=== PATIENT | male | born 1985 | race Two or more races ===

== ENCOUNTER 2022-11-09 10:23 | Inpatient (IN) | payer MEDICAID, OTHER ==
[~2022-11-09] VITALS: Ht 170.2 cm; Wt 82.1 kg
[2022-11-09] MEDS ORDERED: NITROGLYCERIN 0.4 MG SL TAB SL ONE (10:45)
[2022-11-09] MEDS ORDERED: ASPirin 325 MG TAB PO ONE (10:45)
[2022-11-09 11:15] LABS: Basophils # (auto) 0.1 10 ^3/uL (0-0.2); Basophils % (auto) 0.5 % (0.0-2.0); Eosinophils # (auto) 0 10 ^3/uL (0-0.8); Hemoglobin 16.6 g/dL (13.5-17.5); Lymphocytes # (auto) 1.3 10 ^3/uL (0.4-5.4); Lymphocytes % (auto) 9.4 % (10.0-50.0); Mean Corpuscular Hemoglobin 30.7 pg (28.0-32.0); Mean Corpuscular Hgb Conc. 34.7 g/dL (32.0-36.0); Mean Corpuscular Volume 88.6 fL (80.0-100.0); Monocytes # (auto) 0.8 10 ^3/uL (0-1.3); Neutrophils # (auto) 11.6 10 ^3/uL (1.6-8.6); Neutrophils % (auto) 84.1 % (37.0-80.0); Nucleated Red Blood Cells % 0.9 %; Red Blood Cells 5.41 10^6/uL (4.5-5.90); Red Cell Distribution Width 12.3 % (11.8-14.3); White Blood Cell 13.7 10^3/uL (4.4-10.8)
[2022-11-09 11:30] LABS: Albumin 4.3 g/dL (3.4-5.0); Calcium 8.6 mg/dL (8.5-10.1); Potassium 3.7 mmol/L (3.5-5.1)
[2022-11-09 11:33] LABS: BUN/Creatinine Ratio 10.2; Bilirubin, Total 1.1 mg/dL (0.2-1.0); Total Protein 7.9 g/dL (6.4-8.2)
[2022-11-09] MEDS ORDERED: metroNIDAZOLE 500MG/100ML 100 ML IV ONE (14:00)
[2022-11-09] MEDS ORDERED: cefTRIAXone 1GM/50ML D5W 50 ML IV ONE (14:00)
[2022-11-09] MEDS ORDERED: MORPHINE SULFATE 4 MG/ML SYR/VIAL IV ONE (14:00)
[2022-11-09] MEDS ORDERED: ENOXAPARIN SOD 100 MG/1 ML SYRINGE SC ONE (14:00)
[2022-11-09] MEDS ORDERED: ONDANSETRON HCL 4 MG/2 ML VIAL IV ONE (14:00)
[2022-11-09] MEDS ORDERED: NITROGLYCERIN 0.4MG/HR TOPICAL PATCH TD ONE (15:30)
[2022-11-09] MEDS ORDERED: hydrALAZINE HCL 20 MG/ML VL IV PRN (15:30)
[2022-11-09] MEDS ORDERED: SODIUM CHLORIDE 0.9% 1,000 ML IV SCH (15:30)
[2022-11-09] MEDS ORDERED: THIAMINE HCL 100 MG TAB PO ONE (15:45)
[2022-11-09] MEDS: LACTATED RINGER'S 1,000 ML IV SCH ×2 (16:31→20:27)
[2022-11-09] MEDS: HYDROmorphone HCL 2 MG/ML VL/or syr IV PRN ×2 (16:31→20:55)
[2022-11-09 16:47] LABS: INR 1.03 (0.9-1.15); Partial Thromboplastin Time 29.6 sec (24.6-33.4)
[2022-11-09 16:50] LABS: Bilirubin, Direct 0.2 mg/dL (0-0.2); Cholesterol 174 mg/dL (< 200)
[2022-11-09 16:52] LABS: Bilirubin, Total 1.3 mg/dL (0.2-1.0); HDL Cholesterol 40 mg/dL (40-59); Triglycerides 744 mg/dL (< 150)
[2022-11-09] MEDS ORDERED: ATORVASTATIN 20 MG TAB PO SCH (22:00)
[2022-11-09] MEDS: metroNIDAZOLE 500MG/100ML 100 ML IV SCH (22:15)
[2022-11-09] MEDS: PANTOPRAZOLE 40 MG/10 ML VIAL INJ IV SCH (22:15)
[2022-11-10] MEDS: LACTATED RINGER'S 1,000 ML IV SCH ×5 (00:29→16:15)
[2022-11-10] MEDS: LORazepam 2MG/ML-1ML VIAL IV PRN ×3 (00:55→20:18)
[2022-11-10] MEDS ORDERED: LORazepam 2MG/ML-1ML VIAL IV ONE (02:30)
[2022-11-10] MEDS: chlordiazePOXIDE HCL 25 MG CAP PO SCH ×3 (03:58→20:38)
[2022-11-10] MEDS: HYDROmorphone HCL 2 MG/ML VL/or syr IV PRN ×5 (04:00→20:25)
[2022-11-10] MEDS: metroNIDAZOLE 500MG/100ML 100 ML IV SCH (06:26)
[2022-11-10] MEDS ORDERED: SODIUM CHLORIDE 0.9% 2,000 ML IV ONE (06:45)
[2022-11-10 07:07] LABS: Basophils # (auto) 0.1 10 ^3/uL (0-0.2); Eosinophils # (auto) 0 10 ^3/uL (0-0.8)
[2022-11-10 07:08] LABS: Basophils % (auto) 0.3 % (0.0-2.0); Hematocrit 51.8 % (41.0-53.0); Lymphocytes # (auto) 0.5 10 ^3/uL (0.4-5.4); Lymphocytes % (auto) 3.4 % (10.0-50.0); Mean Corpuscular Hemoglobin 31.4 pg (28.0-32.0); Mean Corpuscular Hgb Conc. 34.8 g/dL (32.0-36.0); Mean Corpuscular Volume 90.4 fL (80.0-100.0); Monocytes % (auto) 6.1 % (0.0-12.0); Neutrophils # (auto) 14.6 10 ^3/uL (1.6-8.6); Neutrophils % (auto) 90.2 % (37.0-80.0); Nucleated Red Blood Cells % 0.5 %; Red Blood Cells 5.73 10^6/uL (4.5-5.90); White Blood Cell 16.2 10^3/uL (4.4-10.8)
[2022-11-10 07:25] LABS: BUN/Creatinine Ratio 18.8; Potassium 5.1 mmol/L (3.5-5.1)
[2022-11-10 07:26] LABS: Albumin 3.2 g/dL (3.4-5.0); Bilirubin, Total 2.9 mg/dL (0.2-1.0); Total Protein 6.3 g/dL (6.4-8.2)
[2022-11-10 08:50] LABS: Amylase 433 U/L (25-115)
[2022-11-10] MEDS ORDERED: cefTRIAXone 1GM/50ML D5W 50 ML IV SCH (09:00)
[2022-11-10 09:02] LABS: Lipase 5558 U/L (73-393)
[2022-11-10] MEDS: PANTOPRAZOLE 40 MG/10 ML VIAL INJ IV SCH ×2 (09:09→22:27)
[2022-11-10] MEDS: MEROPENEM 1GM IVPB 100 ML IV SCH ×2 (09:09→17:26)
[2022-11-10] MEDS: THIAMINE HCL 100 MG TAB PO SCH (09:10)
[2022-11-10] MEDS ORDERED: LISINOPRIL 10 MG TAB PO SCH (10:00)
[2022-11-10] MEDS ORDERED: ASPirin 81 mg TAB PO SCH (10:00)
[2022-11-10 11:15] LABS: Urine Bacteria NONE SEEN /hpf (None Seen); Urine Blood 3+ /uL (Negative); Urine Hyaline Cast MOD /lpf (0 - 2); Urine Mucus FEW (None Seen); Urine Specific Gravity 1.036 (1.001-1.035); Urine WBC 1 /hpf (0 - 3)
[2022-11-10 11:28] LABS: Alcohol, Urine < 3.0 mg/dL (0-10); Amphetamine Screen, Urine NEGATIVE (NEGATIVE); Barbiturate Scree,Urine NEGATIVE (NEGATIVE); Benzodiazephine Screen, Urine POSITIVE (NEGATIVE); Cannabinoid Screen, Urine NEGATIVE (NEGATIVE); Cocaine Screen, Urine POSITIVE (NEGATIVE); Opiate Scree,Urine POSITIVE (NEGATIVE); Phencyclidine Screen, Urine NEGATIVE (NEGATIVE)
[2022-11-10 18:09] LABS: Albumin 2.9 g/dL (3.4-5.0); Potassium 5.4 mmol/L (3.5-5.1)
[2022-11-10 18:12] LABS: Lactic Acid w/Reflex 3.5 mmol/L (0.4-2.0)
[2022-11-10 18:13] LABS: BUN/Creatinine Ratio 14.3; Bilirubin, Total 2.7 mg/dL (0.2-1.0); Total Protein 5.6 g/dL (6.4-8.2)
[2022-11-10 18:22] LABS: Calcium 5.8 mg/dL (8.5-10.1)
[2022-11-10] MEDS ORDERED: OMNIPAQUE ORAL SOLN 500ml 12mg/ml PO ONE (18:46)
[2022-11-10] MEDS ORDERED: IOHEXOL 350 MG/ML 100ML IJ ONE (18:46)
[2022-11-10] MEDS ORDERED: CALCIUM GLUC 1,000mg/50ml-NS 50 ML IV STA (19:42)
[2022-11-10] MEDS ORDERED: SODIUM CHLORIDE 0.9% 1,000 ML IV ONE (19:45)
[2022-11-10] MEDS ORDERED: chlordiazePOXIDE HCL 5 MG CAP ONE (20:31)
[2022-11-10 20:37] LABS: Basophils # (auto) 0 10 ^3/uL (0-0.2); Basophils % (auto) 0.1 % (0.0-2.0); Eosinophils # (auto) 0 10 ^3/uL (0-0.8); Hematocrit 46.9 % (41.0-53.0); Hemoglobin 15.9 g/dL (13.5-17.5); Lymphocytes # (auto) 0.8 10 ^3/uL (0.4-5.4); Lymphocytes % (auto) 6.1 % (10.0-50.0); Mean Corpuscular Hemoglobin 30.8 pg (28.0-32.0); Mean Corpuscular Hgb Conc. 33.9 g/dL (32.0-36.0); Mean Corpuscular Volume 90.8 fL (80.0-100.0); Monocytes # (auto) 0.9 10 ^3/uL (0-1.3); Monocytes % (auto) 6.7 % (0.0-12.0); Neutrophils # (auto) 12.1 10 ^3/uL (1.6-8.6); Neutrophils % (auto) 87.1 % (37.0-80.0); Red Blood Cells 5.16 10^6/uL (4.5-5.90); Red Cell Distribution Width 13.1 % (11.8-14.3); White Blood Cell 13.9 10^3/uL (4.4-10.8)
[2022-11-10 22:43] LABS: INR 1.03 (0.9-1.15)
[2022-11-11] VITALS (73 sets, daily range): BP systolic 82–139; BP diastolic 51–96
[2022-11-11] MEDS: ACETAMINOPHEN 325 MG TAB PO PRN ×2 (00:06→00:08)
[2022-11-11] MEDS: HYDROmorphone HCL 2 MG/ML VL/or syr IV PRN ×4 (01:25→16:13)
[2022-11-11] MEDS: SODIUM CHLORIDE 0.9% 1,000 ML IV SCH ×6 (01:28→22:45)
[2022-11-11] MEDS: MEROPENEM 1GM IVPB 100 ML IV SCH ×3 (02:07→18:43)
[2022-11-11 05:50] LABS: Albumin 2.7 g/dL (3.4-5.0); Basophils # (auto) 0 10 ^3/uL (0-0.2); Basophils % (auto) 0.1 % (0.0-2.0); Eosinophils # (auto) 0 10 ^3/uL (0-0.8); Hematocrit 44.3 % (41.0-53.0); Hemoglobin 15.2 g/dL (13.5-17.5); Lymphocytes # (auto) 1.1 10 ^3/uL (0.4-5.4); Lymphocytes % (auto) 9.6 % (10.0-50.0); Magnesium 1.9 mg/dL (1.6-2.6); Mean Corpuscular Hemoglobin 31.2 pg (28.0-32.0); Mean Corpuscular Hgb Conc. 34.3 g/dL (32.0-36.0); Mean Corpuscular Volume 91.2 fL (80.0-100.0); Monocytes # (auto) 0.8 10 ^3/uL (0-1.3); Monocytes % (auto) 6.9 % (0.0-12.0); Neutrophils # (auto) 9.9 10 ^3/uL (1.6-8.6); Neutrophils % (auto) 83.4 % (37.0-80.0); Red Blood Cells 4.86 10^6/uL (4.5-5.90); White Blood Cell 11.9 10^3/uL (4.4-10.8)
[2022-11-11 05:58] LABS: BUN/Creatinine Ratio 12.7; Bilirubin, Total 2.6 mg/dL (0.2-1.0); Phosphorus 2.2 mg/dL (2.5-4.90); Total Protein 6.2 g/dL (6.4-8.2)
[2022-11-11 06:19] LABS: Calcium 5.8 mg/dL (8.5-10.1); Potassium 5.6 mmol/L (3.5-5.1)
[2022-11-11] MEDS ORDERED: SODIUM ZIRCONIUM CYCL 10 GM PAK PO ONE (06:45)
[2022-11-11] MEDS: SODIUM BICARBONATE 50ML VIAL 50 ML in SOD CHL 0.45% 1,000 ML IV SCH ×2 (10:39→21:23)
[2022-11-11] MEDS: chlordiazePOXIDE HCL 25 MG CAP PO SCH ×2 (10:41→22:00)
[2022-11-11] MEDS: THIAMINE HCL 100 MG TAB PO SCH (10:42)
[2022-11-11] MEDS: PANTOPRAZOLE 40 MG/10 ML VIAL INJ IV SCH ×2 (10:44→21:57)
[2022-11-11] MEDS: CALCIUM GLUC 1,000mg/50ml-NS 50 ML IV SCH ×3 (10:53→12:08)
[2022-11-11 10:55] LABS: Sodium Urine < 5 mmol/L (40-220)
[2022-11-11 11:04] LABS: Protein, Urine 381.1 mg/dL (0.0-11.9)
[2022-11-11 11:18] LABS: Creatinine, Urine 349 mg/dL (30.0-125.0)
[2022-11-11] MEDS: ALBUMIN 25% 100 ML IV SCH ×2 (11:30→18:44)
[2022-11-11] MEDS ORDERED: SODIUM PHOSPHATES 24 MEQ in SODIUM CHL 0.9% 100 ML IV ONE (12:15)
[2022-11-11] MEDS ORDERED: LIDOCAINE 1% (LOCAL ANESTH.) PF 5ml SDV ID ONE (13:30)
[2022-11-11] MEDS ORDERED: TPN PER PHARMACY 0 ML IV SCH (16:30)
[2022-11-11] MEDS ORDERED: ROCURONIUM 10MG/ML 10ML VIAL IV ONE (17:04)
[2022-11-11] MEDS ORDERED: ETOMIDATE (2MG/ML) 20ML VIAL IV ONE (17:04)
[2022-11-11] MEDS ORDERED: MIDAZOLAM DRIP 50 mg/50mL 50 ML IV ONE (17:19)
[2022-11-11] MEDS ORDERED: fentaNYL Drip 2500mCg/250mlNS 250 ML IV ONE (17:21)
[2022-11-11] MEDS: fentaNYL Drip 2500mCg/250mlNS 250 ML IV SCH (17:31)
[2022-11-11] MEDS: MIDAZOLAM DRIP 50 mg/50mL 50 ML IV SCH ×3 (17:32→23:01)
[2022-11-11 18:28] LABS: Basophils # (auto) 0 10 ^3/uL (0-0.2); Basophils % (auto) 0.3 % (0.0-2.0); Eosinophils # (auto) 0 10 ^3/uL (0-0.8); Eosinophils % (auto) 0.1 % (0.0-7.0); Hemoglobin 12.5 g/dL (13.5-17.5); Lymphocytes # (auto) 0.7 10 ^3/uL (0.4-5.4); Lymphocytes % (auto) 9.6 % (10.0-50.0); Mean Corpuscular Hgb Conc. 34.6 g/dL (32.0-36.0); Mean Corpuscular Volume 92.3 fL (80.0-100.0); Monocytes # (auto) 0.5 10 ^3/uL (0-1.3); Monocytes % (auto) 6.8 % (0.0-12.0); Neutrophils # (auto) 6.4 10 ^3/uL (1.6-8.6); Neutrophils % (auto) 83.2 % (37.0-80.0); Nucleated Red Blood Cells % 0.1 %; Red Cell Distribution Width 13.1 % (11.8-14.3); White Blood Cell 7.6 10^3/uL (4.4-10.8)
[2022-11-11 18:42] LABS: Albumin 2.7 g/dL (3.4-5.0); Magnesium 2.1 mg/dL (1.6-2.6); Potassium 4.1 mmol/L (3.5-5.1)
[2022-11-11 18:45] LABS: BUN/Creatinine Ratio 14.2; Bilirubin, Total 2.2 mg/dL (0.2-1.0)
[2022-11-11 18:56] LABS: Calcium 5.6 mg/dL (8.5-10.1)
[2022-11-11] MEDS ORDERED: DEXTROSE (50%) 50ML SYRG IV SCH (20:00)
[2022-11-11] MEDS ORDERED: CLINIMIX PER PHARMACY IV NR (20:00)
[2022-11-11] MEDS: SODIUM CHLOR 0.9% PF (SALINE LOCK) 10ML VIAL/SYR IV SCH (21:57)
[2022-11-11] MEDS: ACETAMINOPHEN 650 MG RECT SUPP PR PRN (22:45)
[2022-11-11] MEDS: ACCU-CHEK COMFORT CURVE STRIP VI SCH (23:56)
[2022-11-12] VITALS (98 sets, daily range): BP systolic 89–129; BP diastolic 45–88
[2022-11-12] MEDS: InsuLIN REG 1unit/0.01ml Soln (100units/ml) SC SCH ×4 (00:01→18:00)
[2022-11-12] MEDS: ALBUMIN 25% 100 ML IV SCH (01:52)
[2022-11-12] MEDS: MEROPENEM 1GM IVPB 100 ML IV SCH ×3 (02:19→18:13)
[2022-11-12] MEDS: MIDAZOLAM DRIP 50 mg/50mL 50 ML IV SCH ×6 (02:28→21:01)
[2022-11-12] MEDS: PROPOFOL 100 ML IV SCH ×2 (03:40→16:30)
[2022-11-12] MEDS: SODIUM CHLORIDE 0.9% 1,000 ML IV SCH (03:45)
[2022-11-12 04:21] LABS: Albumin 3.3 g/dL (3.4-5.0)
[2022-11-12 04:25] LABS: Bilirubin, Total 2.4 mg/dL (0.2-1.0); Phosphorus 3.4 mg/dL (2.5-4.90); Total Protein 6.1 g/dL (6.4-8.2)
[2022-11-12 04:29] LABS: BUN/Creatinine Ratio 12.5
[2022-11-12 04:30] LABS: Calcium 5.1 mg/dL (8.5-10.1)
[2022-11-12] MEDS: fentaNYL Drip 2500mCg/250mlNS 250 ML IV SCH ×2 (05:23→17:21)
[2022-11-12] MEDS: ACCU-CHEK COMFORT CURVE STRIP VI SCH ×3 (05:31→18:16)
[2022-11-12] MEDS: SODIUM BICARBONATE 50ML VIAL 50 ML in SOD CHL 0.45% 1,000 ML IV SCH ×2 (08:16→17:40)
[2022-11-12] MEDS: CALCIUM GLUC 1,000mg/50ml-NS 50 ML IV SCH ×5 (08:21→13:04)
[2022-11-12] MEDS: chlordiazePOXIDE HCL 25 MG CAP PO SCH ×2 (10:00→22:00)
[2022-11-12] MEDS: THIAMINE HCL 100 MG TAB PO SCH (10:00)
[2022-11-12] MEDS: PANTOPRAZOLE 40 MG/10 ML VIAL INJ IV SCH ×2 (10:03→22:22)
[2022-11-12] MEDS: SODIUM CHLOR 0.9% PF (SALINE LOCK) 10ML VIAL/SYR IV SCH ×2 (10:04→22:23)
[2022-11-12] MEDS: ACETAMINOPHEN 650 MG RECT SUPP PR PRN ×2 (10:15→20:08)
[2022-11-12] MEDS ORDERED: SODIUM CHL 0.9% 1000 ML BAG XX ONE (10:30)
[2022-11-12 13:48] LABS: Hepatitis C Antibody Negative (Negative)
[2022-11-12] MEDS: NOREPINEPHRINE 8 MG/250ML KIT 250 ML IV SCH (13:53)
[2022-11-12] MEDS: ALBUMIN 25% 100 ML IV PRN ×2 (14:00→14:50)
[2022-11-12] MEDS ORDERED: TPN PER PHARMACY IV NR ×7 (20:00)
[2022-11-13] VITALS (106 sets, daily range): BP systolic 86–122; BP diastolic 40–78
[2022-11-13] MEDS: ACCU-CHEK COMFORT CURVE STRIP VI SCH ×4 (00:25→17:48)
[2022-11-13] MEDS: InsuLIN REG 1unit/0.01ml Soln (100units/ml) SC SCH ×4 (00:31→18:06)
[2022-11-13] MEDS: MIDAZOLAM DRIP 50 mg/50mL 50 ML IV SCH ×4 (00:37→20:45)
[2022-11-13] MEDS: PROPOFOL 100 ML IV SCH ×5 (00:38→20:45)
[2022-11-13] MEDS: MEROPENEM 1GM IVPB 100 ML IV SCH ×3 (02:06→17:48)
[2022-11-13 04:10] LABS: Basophils # (auto) 0 10 ^3/uL (0-0.2); Basophils % (auto) 0.3 % (0.0-2.0); Eosinophils # (auto) 0 10 ^3/uL (0-0.8); Eosinophils % (auto) 0.8 % (0.0-7.0); Hematocrit 29.3 % (41.0-53.0); Hemoglobin 9.9 g/dL (13.5-17.5); Lymphocytes # (auto) 0.6 10 ^3/uL (0.4-5.4); Lymphocytes % (auto) 11.8 % (10.0-50.0); Mean Corpuscular Hemoglobin 31.2 pg (28.0-32.0); Mean Corpuscular Hgb Conc. 33.8 g/dL (32.0-36.0); Mean Corpuscular Volume 92.2 fL (80.0-100.0); Monocytes # (auto) 0.6 10 ^3/uL (0-1.3); Monocytes % (auto) 10.9 % (0.0-12.0); Neutrophils # (auto) 4.1 10 ^3/uL (1.6-8.6); Neutrophils % (auto) 76.2 % (37.0-80.0); Nucleated Red Blood Cells % 0.1 %; Red Blood Cells 3.18 10^6/uL (4.5-5.90); Red Cell Distribution Width 13.2 % (11.8-14.3); White Blood Cell 5.4 10^3/uL (4.4-10.8)
[2022-11-13] MEDS: SODIUM BICARBONATE 50ML VIAL 50 ML in SOD CHL 0.45% 1,000 ML IV SCH ×2 (04:13→15:16)
[2022-11-13 04:21] LABS: Albumin 2.9 g/dL (3.4-5.0); Magnesium 1.9 mg/dL (1.6-2.6); Potassium 3.6 mmol/L (3.5-5.1)
[2022-11-13 04:25] LABS: Phosphorus 3.8 mg/dL (2.5-4.90); Total Protein 5.2 g/dL (6.4-8.2)
[2022-11-13] MEDS: fentaNYL Drip 2500mCg/250mlNS 250 ML IV SCH ×2 (05:51→18:00)
[2022-11-13] MEDS ORDERED: chlordiazePOXIDE HCL 25 MG CAP PO SCH (07:00)
[2022-11-13] MEDS: THIAMINE HCL 100 MG TAB PO SCH (10:10)
[2022-11-13] MEDS: SODIUM CHLOR 0.9% PF (SALINE LOCK) 10ML VIAL/SYR IV SCH ×2 (10:10→22:05)
[2022-11-13] MEDS: PANTOPRAZOLE 40 MG/10 ML VIAL INJ IV SCH ×2 (10:10→22:25)
[2022-11-13] MEDS: NOREPINEPHRINE 8 MG/250ML KIT 250 ML IV SCH ×2 (13:30→14:00)
[2022-11-13] MEDS ORDERED: TPN PER PHARMACY IV NR ×7 (20:00)
[2022-11-13] MEDS ORDERED: BUMETANIDE 2.5mg/10ml (0.25 mg/ml) INJ IV ONE (20:15)
[2022-11-13] MEDS: ACETAMINOPHEN 650 MG RECT SUPP PR PRN (22:26)
[2022-11-14] VITALS (102 sets, daily range): BP systolic 89–125; BP diastolic 40–80
[2022-11-14] MEDS: InsuLIN REG 1unit/0.01ml Soln (100units/ml) SC SCH ×4 (00:06→18:14)
[2022-11-14] MEDS: ACCU-CHEK COMFORT CURVE STRIP VI SCH ×4 (00:06→18:13)
[2022-11-14] MEDS: SODIUM BICARBONATE 50ML VIAL 50 ML in SOD CHL 0.45% 1,000 ML IV SCH (00:45)
[2022-11-14] MEDS: MEROPENEM 1GM IVPB 100 ML IV SCH ×2 (01:31→09:43)
[2022-11-14] MEDS: PROPOFOL 100 ML IV SCH ×5 (04:00→23:48)
[2022-11-14 04:21] LABS: Basophils # (auto) 0.1 10 ^3/uL (0-0.2); Eosinophils # (auto) 0.1 10 ^3/uL (0-0.8); Eosinophils % (auto) 1.9 % (0.0-7.0); Hematocrit 27.3 % (41.0-53.0); Hemoglobin 9.5 g/dL (13.5-17.5); Lymphocytes # (auto) 0.6 10 ^3/uL (0.4-5.4); Mean Corpuscular Hemoglobin 31.9 pg (28.0-32.0); Mean Corpuscular Hgb Conc. 34.7 g/dL (32.0-36.0); Mean Corpuscular Volume 92.1 fL (80.0-100.0); Monocytes # (auto) 0.7 10 ^3/uL (0-1.3); Monocytes % (auto) 13.5 % (0.0-12.0); Neutrophils # (auto) 4.1 10 ^3/uL (1.6-8.6); Neutrophils % (auto) 73.6 % (37.0-80.0); Nucleated Red Blood Cells % 0.1 %; Red Blood Cells 2.96 10^6/uL (4.5-5.90); Red Cell Distribution Width 13.5 % (11.8-14.3); White Blood Cell 5.5 10^3/uL (4.4-10.8)
[2022-11-14 04:32] LABS: Albumin 2.2 g/dL (3.4-5.0); BUN/Creatinine Ratio 9.6; Magnesium 2.1 mg/dL (1.6-2.6); Phosphorus 5.1 mg/dL (2.5-4.90); Potassium 3.8 mmol/L (3.5-5.1)
[2022-11-14 04:35] LABS: Bilirubin, Total 2.1 mg/dL (0.2-1.0); Total Protein 4.6 g/dL (6.4-8.2)
[2022-11-14] MEDS: MIDAZOLAM DRIP 50 mg/50mL 50 ML IV SCH ×5 (05:00→21:27)
[2022-11-14 05:02] LABS: Calcium 5.8 mg/dL (8.5-10.1)
[2022-11-14] MEDS: CALCIUM GLUC 1,000mg/50ml-NS 50 ML IV PRN ×2 (05:15→05:45)
[2022-11-14] MEDS: fentaNYL Drip 2500mCg/250mlNS 250 ML IV SCH (05:25)
[2022-11-14] MEDS: THIAMINE HCL 100 MG TAB PO SCH (09:42)
[2022-11-14] MEDS: SODIUM CHLOR 0.9% PF (SALINE LOCK) 10ML VIAL/SYR IV SCH ×2 (09:42→22:25)
[2022-11-14] MEDS: PANTOPRAZOLE 40 MG/10 ML VIAL INJ IV SCH ×2 (09:42→22:23)
[2022-11-14] MEDS ORDERED: ENOXAPARIN SOD 30 MG/0.3 ML SYRINGE SC ONE (12:15)
[2022-11-14] MEDS ORDERED: BUMETANIDE 2.5mg/10ml (0.25 mg/ml) INJ IV ONE (14:30)
[2022-11-14] MEDS: BUMETANIDE INJECTION 25 MG in GIVE UN-DILUTED 0 ML IV SCH (16:56)
[2022-11-14] MEDS ORDERED: OPTISON 3ml Vial for INJ IV ONE (19:52)
[2022-11-14] MEDS ORDERED: TPN PER PHARMACY IV NR ×7 (20:00)
[2022-11-14] MEDS: MEROPENEM 500MG IVPB 50 ML IV SCH (22:24)
[2022-11-15] VITALS (106 sets, daily range): BP systolic 92–140; BP diastolic 46–95
[2022-11-15] MEDS: InsuLIN REG 1unit/0.01ml Soln (100units/ml) SC SCH ×5 (00:31→23:57)
[2022-11-15] MEDS: MIDAZOLAM DRIP 50 mg/50mL 50 ML IV SCH ×3 (02:33→21:00)
[2022-11-15] MEDS: PROPOFOL 100 ML IV SCH ×4 (04:57→20:00)
[2022-11-15 05:01] LABS: Basophils # (auto) 0 10 ^3/uL (0-0.2); Basophils % (auto) 0.5 % (0.0-2.0); Eosinophils # (auto) 0.2 10 ^3/uL (0-0.8); Eosinophils % (auto) 1.8 % (0.0-7.0); Hematocrit 26.2 % (41.0-53.0); Hemoglobin 9.2 g/dL (13.5-17.5); Lymphocytes # (auto) 0.6 10 ^3/uL (0.4-5.4); Lymphocytes % (auto) 7.4 % (10.0-50.0); Mean Corpuscular Hemoglobin 32.3 pg (28.0-32.0); Mean Corpuscular Hgb Conc. 35.1 g/dL (32.0-36.0); Mean Corpuscular Volume 92.2 fL (80.0-100.0); Monocytes % (auto) 11.7 % (0.0-12.0); Neutrophils # (auto) 6.7 10 ^3/uL (1.6-8.6); Neutrophils % (auto) 78.6 % (37.0-80.0); Nucleated Red Blood Cells % 0.1 %; Red Blood Cells 2.85 10^6/uL (4.5-5.90); Red Cell Distribution Width 13.4 % (11.8-14.3); White Blood Cell 8.5 10^3/uL (4.4-10.8)
[2022-11-15] MEDS: fentaNYL Drip 2500mCg/250mlNS 250 ML IV SCH ×2 (05:01→16:21)
[2022-11-15 05:15] LABS: Albumin 1.8 g/dL (3.4-5.0); Anion Gap 15 (5-15); BUN/Creatinine Ratio 9.4; Calcium 6.5 mg/dL (8.5-10.1); Carbon Dioxide 23 mmol/L (21-32); Chloride 96 mmol/L (98-107); GFR African American 9 mL/min; GFR Non-African American 7 mL/min; Glucose 139 mg/dL (74-106); Magnesium 2.1 mg/dL (1.6-2.6); Potassium 3.9 mmol/L (3.5-5.1); Sodium 134 mmol/L (136-145)
[2022-11-15 05:18] LABS: Alanine Aminotransferase 8 U/L (16-61); Alkaline Phosphatase 80 U/L (45-117); Aspartate Aminotransferase 22 U/L (15-37); Bilirubin, Total 1.9 mg/dL (0.2-1.0); Phosphorus 5.8 mg/dL (2.5-4.90); Total Protein 4.8 g/dL (6.4-8.2)
[2022-11-15 05:26] LABS: Blood Urea Nitrogen 82 mg/dL (7-18)
[2022-11-15] MEDS: ACCU-CHEK COMFORT CURVE STRIP VI SCH ×5 (06:24→23:56)
[2022-11-15] MEDS: PANTOPRAZOLE 40 MG/10 ML VIAL INJ IV SCH ×2 (09:39→21:30)
[2022-11-15] MEDS: THIAMINE 100mg/ml INJ (200mg/2ml VIAL) IV SCH (09:40)
[2022-11-15] MEDS: SODIUM CHLOR 0.9% PF (SALINE LOCK) 10ML VIAL/SYR IV SCH ×2 (09:40→21:29)
[2022-11-15] MEDS: ENOXAPARIN SOD 30 MG/0.3 ML SYRINGE SC SCH (09:40)
[2022-11-15] MEDS: MEROPENEM 500MG IVPB 50 ML IV SCH ×2 (09:40→21:33)
[2022-11-15] MEDS: NOREPINEPHRINE 8 MG/250ML KIT 250 ML IV SCH (10:17)
[2022-11-15] MEDS ORDERED: CALCIUM GLUC 1,000mg/50ml-NS 50 ML IV ONE (10:30)
[2022-11-15] MEDS: ALBUMIN 25% 100 ML IV PRN (10:45)
[2022-11-15] MEDS: BUMETANIDE INJECTION 25 MG in GIVE UN-DILUTED 0 ML IV SCH (18:25)
[2022-11-15] MEDS: ACETAMINOPHEN 650 MG RECT SUPP PR PRN (18:53)
[2022-11-15] MEDS ORDERED: TPN PER PHARMACY IV NR ×7 (20:00)
[2022-11-16] VITALS (91 sets, daily range): BP systolic 102–149; BP diastolic 62–104
[2022-11-16] MEDS: PROPOFOL 100 ML IV SCH ×5 (00:53→17:54)
[2022-11-16] MEDS: MIDAZOLAM DRIP 50 mg/50mL 50 ML IV SCH ×6 (01:02→22:36)
[2022-11-16] MEDS: ACETAMINOPHEN 650 MG RECT SUPP PR PRN ×3 (02:56→17:07)
[2022-11-16 04:15] LABS: Albumin 2.2 g/dL (3.4-5.0); Calcium 7.6 mg/dL (8.5-10.1); Potassium 3.4 mmol/L (3.5-5.1)
[2022-11-16 04:19] LABS: BUN/Creatinine Ratio 11.3; Magnesium 2.3 mg/dL (1.6-2.6)
[2022-11-16 04:21] LABS: Bilirubin, Total 1.6 mg/dL (0.2-1.0); Phosphorus 5.6 mg/dL (2.5-4.90); Total Protein 5.7 g/dL (6.4-8.2)
[2022-11-16 04:29] LABS: Hematocrit 25.6 % (41.0-53.0); Hemoglobin 8.9 g/dL (13.5-17.5); Mean Corpuscular Hemoglobin 31.5 pg (28.0-32.0); Mean Corpuscular Hgb Conc. 34.7 g/dL (32.0-36.0); Mean Corpuscular Volume 90.7 fL (80.0-100.0); Red Blood Cells 2.82 10^6/uL (4.5-5.90); White Blood Cell 11.2 10^3/uL (4.4-10.8)
[2022-11-16 04:31] LABS: Basophils % (manual) 0 (0.0-2.0); Blast Cells 0; Eosinophils % (manual) 0 (0-7); Metamyelocytes % 0; Myelocytes % 0; Promyelocytes % 0; Reactive Lymphocytes 0
[2022-11-16 04:43] LABS: INR 1.03 (0.9-1.15)
[2022-11-16] MEDS: fentaNYL Drip 2500mCg/250mlNS 250 ML IV SCH ×2 (05:28→16:39)
[2022-11-16] MEDS: ACCU-CHEK COMFORT CURVE STRIP VI SCH ×3 (06:01→17:53)
[2022-11-16] MEDS: InsuLIN REG 1unit/0.01ml Soln (100units/ml) SC SCH ×3 (06:06→17:58)
[2022-11-16 07:47] LABS: Band Neutrophils % (manual) 74; Lymphocytes % (manual) 6 (10.0-50.0); Monocytes % (manual) 8 (0-12)
[2022-11-16] MEDS: MEROPENEM 500MG IVPB 50 ML IV SCH ×2 (09:56→22:13)
[2022-11-16] MEDS: THIAMINE 100mg/ml INJ (200mg/2ml VIAL) IV SCH (09:58)
[2022-11-16] MEDS: PANTOPRAZOLE 40 MG/10 ML VIAL INJ IV SCH ×2 (09:59→22:16)
[2022-11-16] MEDS: ENOXAPARIN SOD 30 MG/0.3 ML SYRINGE SC SCH ×2 (09:59→10:00)
[2022-11-16] MEDS: SODIUM CHLOR 0.9% PF (SALINE LOCK) 10ML VIAL/SYR IV SCH ×2 (09:59→22:00)
[2022-11-16] MEDS: POTASSIUM CHL 20MEQ/100ML 100 ML IV SCH ×2 (12:39→15:17)
[2022-11-16] MEDS: NOREPINEPHRINE 8 MG/250ML KIT 250 ML IV SCH (13:15)
[2022-11-16] MEDS: BUMETANIDE INJECTION 25 MG in GIVE UN-DILUTED 0 ML IV SCH (17:56)
[2022-11-16] MEDS ORDERED: SODIUM CHLORIDE 0.9% 500 ML IV ONE (18:15)
[2022-11-16] MEDS ORDERED: TPN PER PHARMACY IV NR ×9 (20:00)
[2022-11-17] VITALS (90 sets, daily range): BP systolic 111–146; BP diastolic 75–104
[2022-11-17] MEDS: ACCU-CHEK COMFORT CURVE STRIP VI SCH ×5 (00:06→23:14)
[2022-11-17] MEDS: InsuLIN REG 1unit/0.01ml Soln (100units/ml) SC SCH ×5 (00:07→23:14)
[2022-11-17 04:31] LABS: Hematocrit 29.7 % (41.0-53.0); Hemoglobin 10.3 g/dL (13.5-17.5); Mean Corpuscular Hemoglobin 31.2 pg (28.0-32.0); Mean Corpuscular Hgb Conc. 34.6 g/dL (32.0-36.0); Mean Corpuscular Volume 90.1 fL (80.0-100.0); White Blood Cell 12.5 10^3/uL (4.4-10.8)
[2022-11-17 04:33] LABS: Eosinophils % (manual) 0 (0-7)
[2022-11-17 04:34] LABS: Basophils % (manual) 0 (0.0-2.0); Blast Cells 0; Promyelocytes % 0; Reactive Lymphocytes 0
[2022-11-17 04:47] LABS: Albumin 2.3 g/dL (3.4-5.0); Calcium 8.1 mg/dL (8.5-10.1); Magnesium 2.1 mg/dL (1.6-2.6); Potassium 3.4 mmol/L (3.5-5.1)
[2022-11-17 04:51] LABS: BUN/Creatinine Ratio 17.1; Bilirubin, Total 1.3 mg/dL (0.2-1.0); Total Protein 6.4 g/dL (6.4-8.2)
[2022-11-17] MEDS: fentaNYL Drip 2500mCg/250mlNS 250 ML IV SCH (05:36)
[2022-11-17] MEDS: MIDAZOLAM DRIP 50 mg/50mL 50 ML IV SCH ×3 (05:39→23:22)
[2022-11-17] MEDS: PROPOFOL 100 ML IV SCH ×3 (07:56→22:06)
[2022-11-17 08:04] LABS: Band Neutrophils % (manual) 37; Lymphocytes % (manual) 6 (10.0-50.0); Metamyelocytes % 2; Monocytes % (manual) 10 (0-12); Myelocytes % 5
[2022-11-17] MEDS: POTASSIUM CHL 20MEQ/100ML 100 ML IV SCH ×2 (09:03→10:57)
[2022-11-17] MEDS: ENOXAPARIN SOD 30 MG/0.3 ML SYRINGE SC SCH (10:00)
[2022-11-17] MEDS: PANTOPRAZOLE 40 MG/10 ML VIAL INJ IV SCH ×2 (10:18→21:34)
[2022-11-17] MEDS: THIAMINE 100mg/ml INJ (200mg/2ml VIAL) IV SCH (10:18)
[2022-11-17] MEDS: SODIUM CHLOR 0.9% PF (SALINE LOCK) 10ML VIAL/SYR IV SCH ×2 (10:18→21:34)
[2022-11-17] MEDS: MEROPENEM 500MG IVPB 50 ML IV SCH ×2 (10:18→21:34)
[2022-11-17] MEDS: NOREPINEPHRINE 8 MG/250ML KIT 250 ML IV SCH (13:15)
[2022-11-17] MEDS: BUMETANIDE 2.5mg/10ml (0.25 mg/ml) INJ IV SCH (18:13)
[2022-11-17] MEDS ORDERED: TPN PER PHARMACY IV NR ×9 (20:00)
[2022-11-17] MEDS: ACETAMINOPHEN 650 MG RECT SUPP PR PRN (23:17)
[2022-11-18] VITALS (106 sets, daily range): BP systolic 111–136; BP diastolic 72–98
[2022-11-18] MEDS: PROPOFOL 100 ML IV SCH ×7 (00:31→21:00)
[2022-11-18] MEDS: fentaNYL Drip 2500mCg/250mlNS 250 ML IV SCH ×3 (03:12→17:15)
[2022-11-18 04:44] LABS: Basophils # (auto) 0 10 ^3/uL (0-0.2); Basophils % (auto) 0.2 % (0.0-2.0); Eosinophils # (auto) 0.2 10 ^3/uL (0-0.8); Eosinophils % (auto) 1.7 % (0.0-7.0); Hematocrit 29.2 % (41.0-53.0); Hemoglobin 10.3 g/dL (13.5-17.5); Lymphocytes # (auto) 0.7 10 ^3/uL (0.4-5.4); Lymphocytes % (auto) 5.3 % (10.0-50.0); Mean Corpuscular Hemoglobin 31.5 pg (28.0-32.0); Mean Corpuscular Hgb Conc. 35.2 g/dL (32.0-36.0); Mean Corpuscular Volume 89.6 fL (80.0-100.0); Monocytes # (auto) 1.1 10 ^3/uL (0-1.3); Monocytes % (auto) 7.8 % (0.0-12.0); Neutrophils # (auto) 11.8 10 ^3/uL (1.6-8.6); Red Blood Cells 3.26 10^6/uL (4.5-5.90); Red Cell Distribution Width 13.3 % (11.8-14.3); White Blood Cell 13.9 10^3/uL (4.4-10.8)
[2022-11-18 04:47] LABS: Albumin 2.3 g/dL (3.4-5.0); Calcium 8.9 mg/dL (8.5-10.1); Magnesium 2.2 mg/dL (1.6-2.6)
[2022-11-18 04:50] LABS: BUN/Creatinine Ratio 30.2; Bilirubin, Total 1.1 mg/dL (0.2-1.0); Phosphorus 5.4 mg/dL (2.5-4.90); Total Protein 7.7 g/dL (6.4-8.2)
[2022-11-18] MEDS: MIDAZOLAM DRIP 50 mg/50mL 50 ML IV SCH ×5 (05:08→21:39)
[2022-11-18] MEDS: BUMETANIDE 2.5mg/10ml (0.25 mg/ml) INJ IV SCH (05:58)
[2022-11-18] MEDS: ACCU-CHEK COMFORT CURVE STRIP VI SCH ×3 (06:19→18:09)
[2022-11-18] MEDS: InsuLIN REG 1unit/0.01ml Soln (100units/ml) SC SCH ×4 (06:19→23:51)
[2022-11-18] MEDS: POTASSIUM CHL 20MEQ/100ML 100 ML IV SCH ×5 (09:18→21:26)
[2022-11-18] MEDS: THIAMINE 100mg/ml INJ (200mg/2ml VIAL) IV SCH (10:29)
[2022-11-18] MEDS: PANTOPRAZOLE 40 MG/10 ML VIAL INJ IV SCH ×2 (10:30→21:27)
[2022-11-18] MEDS: SODIUM CHLOR 0.9% PF (SALINE LOCK) 10ML VIAL/SYR IV SCH ×2 (10:30→21:27)
[2022-11-18] MEDS: MEROPENEM 500MG IVPB 50 ML IV SCH ×2 (10:30→21:27)
[2022-11-18] MEDS: NOREPINEPHRINE 8 MG/250ML KIT 250 ML IV SCH (13:15)
[2022-11-18] MEDS: SODIUM CHLORIDE 0.9% 1,000 ML IV SCH (19:08)
[2022-11-18] MEDS ORDERED: TPN PER PHARMACY IV NR ×8 (20:00)
[2022-11-19] VITALS (105 sets, daily range): BP systolic 99–142; BP diastolic 62–101
[2022-11-19] MEDS: ACCU-CHEK COMFORT CURVE STRIP VI SCH ×5 (00:02→23:56)
[2022-11-19] MEDS: MIDAZOLAM DRIP 50 mg/50mL 50 ML IV SCH ×5 (01:00→21:15)
[2022-11-19] MEDS: fentaNYL Drip 2500mCg/250mlNS 250 ML IV SCH ×3 (01:00→17:33)
[2022-11-19] MEDS: SODIUM CHLORIDE 0.9% 1,000 ML IV SCH ×3 (03:30→19:25)
[2022-11-19] MEDS: PROPOFOL 100 ML IV SCH ×6 (03:52→22:50)
[2022-11-19 04:29] LABS: BUN/Creatinine Ratio 44.4; Calcium 9.1 mg/dL (8.5-10.1); Magnesium 2.2 mg/dL (1.6-2.6); Potassium 3.6 mmol/L (3.5-5.1)
[2022-11-19 04:32] LABS: Bilirubin, Total 1.1 mg/dL (0.2-1.0); Phosphorus 4.1 mg/dL (2.5-4.90); Total Protein 7.2 g/dL (6.4-8.2)
[2022-11-19] MEDS: InsuLIN REG 1unit/0.01ml Soln (100units/ml) SC SCH ×4 (06:00→23:57)
[2022-11-19] MEDS: THIAMINE 100mg/ml INJ (200mg/2ml VIAL) IV SCH (09:53)
[2022-11-19] MEDS: PANTOPRAZOLE 40 MG/10 ML VIAL INJ IV SCH ×2 (09:53→22:15)
[2022-11-19] MEDS: MEROPENEM 1GM IVPB 100 ML IV SCH ×2 (09:53→22:15)
[2022-11-19] MEDS: SODIUM CHLOR 0.9% PF (SALINE LOCK) 10ML VIAL/SYR IV SCH ×2 (09:54→22:00)
[2022-11-19 10:12] LABS: Basophils # (auto) 0 10 ^3/uL (0-0.2); Basophils % (auto) 0.2 % (0.0-2.0); Eosinophils # (auto) 0.3 10 ^3/uL (0-0.8); Eosinophils % (auto) 2.5 % (0.0-7.0); Hematocrit 28.8 % (41.0-53.0); Hemoglobin 9.7 g/dL (13.5-17.5); Lymphocytes # (auto) 1.1 10 ^3/uL (0.4-5.4); Lymphocytes % (auto) 8.6 % (10.0-50.0); Mean Corpuscular Hemoglobin 30.8 pg (28.0-32.0); Mean Corpuscular Hgb Conc. 33.5 g/dL (32.0-36.0); Mean Corpuscular Volume 91.8 fL (80.0-100.0); Monocytes # (auto) 0.9 10 ^3/uL (0-1.3); Monocytes % (auto) 7.4 % (0.0-12.0); Neutrophils # (auto) 10.5 10 ^3/uL (1.6-8.6); Neutrophils % (auto) 81.3 % (37.0-80.0); Red Blood Cells 3.14 10^6/uL (4.5-5.90); Red Cell Distribution Width 13.1 % (11.8-14.3); White Blood Cell 12.9 10^3/uL (4.4-10.8)
[2022-11-19] MEDS: NOREPINEPHRINE 8 MG/250ML KIT 250 ML IV SCH (13:15)
[2022-11-19] MEDS ORDERED: METOCLOPRAMIDE HCL 5MG/ml INJ 2ml VIAL IV SCH (14:00)
[2022-11-19] MEDS ORDERED: METOCLOPRAMIDE HCL 5MG/ml INJ 2ml VIAL IV ONE (15:30)
[2022-11-19] MEDS: ATRACURIUM BESYLATE 1,000 MG in D5W 5% 150 ML IV SCH (16:30)
[2022-11-19] MEDS ORDERED: TPN PER PHARMACY IV NR ×8 (20:00)
[2022-11-20] VITALS (104 sets, daily range): BP systolic 86–150; BP diastolic 46–103
[2022-11-20] MEDS: MIDAZOLAM DRIP 50 mg/50mL 50 ML IV SCH ×7 (00:37→21:59)
[2022-11-20] MEDS: METOCLOPRAMIDE HCL 5MG/ml INJ 2ml VIAL IV SCH ×3 (01:57→18:51)
[2022-11-20] MEDS: fentaNYL Drip 2500mCg/250mlNS 250 ML IV SCH ×3 (01:58→18:53)
[2022-11-20] MEDS: PROPOFOL 100 ML IV SCH ×7 (02:22→20:43)
[2022-11-20 04:07] LABS: Basophils # (auto) 0 10 ^3/uL (0-0.2); Basophils % (auto) 0.3 % (0.0-2.0); Eosinophils # (auto) 0.2 10 ^3/uL (0-0.8); Eosinophils % (auto) 2.5 % (0.0-7.0); Hematocrit 26.5 % (41.0-53.0); Hemoglobin 8.9 g/dL (13.5-17.5); Lymphocytes # (auto) 0.8 10 ^3/uL (0.4-5.4); Lymphocytes % (auto) 8.6 % (10.0-50.0); Mean Corpuscular Hemoglobin 31.3 pg (28.0-32.0); Mean Corpuscular Hgb Conc. 33.5 g/dL (32.0-36.0); Mean Corpuscular Volume 93.4 fL (80.0-100.0); Monocytes # (auto) 0.6 10 ^3/uL (0-1.3); Monocytes % (auto) 6.3 % (0.0-12.0); Neutrophils # (auto) 7.4 10 ^3/uL (1.6-8.6); Neutrophils % (auto) 82.3 % (37.0-80.0); Red Blood Cells 2.84 10^6/uL (4.5-5.90); Red Cell Distribution Width 13.5 % (11.8-14.3)
[2022-11-20 04:23] LABS: Albumin 2.1 g/dL (3.4-5.0); Calcium 8.5 mg/dL (8.5-10.1); Potassium 4.3 mmol/L (3.5-5.1)
[2022-11-20 04:28] LABS: BUN/Creatinine Ratio 47.9; Bilirubin, Total 1.5 mg/dL (0.2-1.0); Magnesium 2.4 mg/dL (1.6-2.6); Phosphorus 4.5 mg/dL (2.5-4.90); Total Protein 6.2 g/dL (6.4-8.2)
[2022-11-20] MEDS: InsuLIN REG 1unit/0.01ml Soln (100units/ml) SC SCH ×3 (05:24→18:00)
[2022-11-20] MEDS: ACCU-CHEK COMFORT CURVE STRIP VI SCH ×3 (05:24→18:52)
[2022-11-20] MEDS: ATRACURIUM BESYLATE 1,000 MG in D5W 5% 150 ML IV SCH ×2 (08:28→16:30)
[2022-11-20] MEDS: SODIUM CHLORIDE 0.9% 1,000 ML IV SCH (09:30)
[2022-11-20] MEDS: PANTOPRAZOLE 40 MG/10 ML VIAL INJ IV SCH ×2 (10:19→21:44)
[2022-11-20] MEDS: THIAMINE 100mg/ml INJ (200mg/2ml VIAL) IV SCH (10:19)
[2022-11-20] MEDS: MEROPENEM 1GM IVPB 100 ML IV SCH ×2 (10:21→21:44)
[2022-11-20] MEDS: SODIUM CHLOR 0.9% PF (SALINE LOCK) 10ML VIAL/SYR IV SCH ×2 (10:29→21:44)
[2022-11-20] MEDS: NOREPINEPHRINE 8 MG/250ML KIT 250 ML IV SCH (13:15)
[2022-11-20] MEDS: PHENYLEPHRINE IV 250 ML IV SCH ×2 (14:15→22:35)
[2022-11-20] MEDS: SOD CHL 0.45% 1,000 ML IV SCH (14:21)
[2022-11-20] MEDS ORDERED: TPN PER PHARMACY IV NR ×5 (20:00)
[2022-11-21] VITALS (108 sets, daily range): BP systolic 89–135; BP diastolic 51–91
[2022-11-21] MEDS: PROPOFOL 100 ML IV SCH ×7 (00:01→21:27)
[2022-11-21] MEDS: ACCU-CHEK COMFORT CURVE STRIP VI SCH ×5 (00:11→23:33)
[2022-11-21] MEDS: SOD CHL 0.45% 1,000 ML IV SCH ×2 (02:05→17:01)
[2022-11-21] MEDS: fentaNYL Drip 2500mCg/250mlNS 250 ML IV SCH ×3 (02:54→18:52)
[2022-11-21] MEDS: METOCLOPRAMIDE HCL 5MG/ml INJ 2ml VIAL IV SCH ×3 (03:12→17:06)
[2022-11-21] MEDS: ACETAMINOPHEN 650 MG RECT SUPP PR PRN (04:44)
[2022-11-21 05:38] LABS: Albumin 1.6 g/dL (3.4-5.0); Anion Gap 14 (5-15); Calcium 6.4 mg/dL (8.5-10.1); Carbon Dioxide 20 mmol/L (21-32); Chloride 96 mmol/L (98-107); Magnesium 2.2 mg/dL (1.6-2.6); Potassium 3.6 mmol/L (3.5-5.1); Sodium 130 mmol/L (136-145)
[2022-11-21 05:42] LABS: Bilirubin, Total 1.6 mg/dL (0.2-1.0); GFR African American 59 mL/min; GFR Non-African American 49 mL/min; Phosphorus 3.7 mg/dL (2.5-4.90)
[2022-11-21 05:47] LABS: Alkaline Phosphatase 159 U/L (45-117)
[2022-11-21] MEDS: InsuLIN REG 1unit/0.01ml Soln (100units/ml) SC SCH ×5 (06:11→23:33)
[2022-11-21] MEDS: PHENYLEPHRINE IV 250 ML IV SCH ×3 (07:30→23:33)
[2022-11-21 08:06] LABS: Total Protein 5.1 g/dL (6.4-8.2)
[2022-11-21 08:18] LABS: Alanine Aminotransferase 24 U/L (16-61); Aspartate Aminotransferase 26 U/L (15-37)
[2022-11-21 08:38] LABS: BUN/Creatinine Ratio 34.3
[2022-11-21] MEDS ORDERED: BISACODYL 10 MG RECT SUPP PR ONE (09:00)
[2022-11-21] MEDS ORDERED: SODIUM CHLORIDE 0.9% 1,000 ML IV SCH (09:00)
[2022-11-21] MEDS: THIAMINE 100mg/ml INJ (200mg/2ml VIAL) IV SCH (09:16)
[2022-11-21] MEDS: PANTOPRAZOLE 40 MG/10 ML VIAL INJ IV SCH ×2 (09:17→21:27)
[2022-11-21] MEDS: MEROPENEM 1GM IVPB 100 ML IV SCH ×2 (09:18→21:27)
[2022-11-21] MEDS: MIDAZOLAM DRIP 50 mg/50mL 50 ML IV SCH ×5 (09:19→22:59)
[2022-11-21 09:24] LABS: Blood Urea Nitrogen 58 mg/dL (7-18)
[2022-11-21] MEDS: SODIUM CHLOR 0.9% PF (SALINE LOCK) 10ML VIAL/SYR IV SCH ×2 (09:52→21:27)
[2022-11-21 10:33] LABS: Hematocrit 24.8 % (41.0-53.0); Hemoglobin 8.3 g/dL (13.5-17.5)
[2022-11-21 11:41] LABS: BUN/Creatinine Ratio 43.7; Calcium 9.4 mg/dL (8.5-10.1); Potassium 4.4 mmol/L (3.5-5.1)
[2022-11-21 11:43] LABS: Bilirubin, Total 1.4 mg/dL (0.2-1.0); Total Protein 7.1 g/dL (6.4-8.2)
[2022-11-21] MEDS: NOREPINEPHRINE 8 MG/250ML KIT 250 ML IV SCH (13:15)
[2022-11-21] MEDS: ATRACURIUM BESYLATE 1,000 MG in D5W 5% 150 ML IV SCH (16:30)
[2022-11-21 19:22] LABS: Hematocrit 25.7 % (41.0-53.0); Hemoglobin 8.6 g/dL (13.5-17.5)
[2022-11-21] MEDS ORDERED: TPN PER PHARMACY IV NR ×8 (20:00)
[2022-11-22] VITALS (107 sets, daily range): BP systolic 93–137; BP diastolic 50–95
[2022-11-22] MEDS ORDERED: MIDAZOLAM DRIP 50 mg/50mL 100 ML IV ONE (02:05)
[2022-11-22] MEDS: METOCLOPRAMIDE HCL 5MG/ml INJ 2ml VIAL IV SCH ×3 (02:46→17:26)
[2022-11-22] MEDS: SOD CHL 0.45% 1,000 ML IV SCH ×3 (02:47→22:24)
[2022-11-22] MEDS: fentaNYL Drip 2500mCg/250mlNS 250 ML IV SCH ×3 (02:49→19:44)
[2022-11-22] MEDS: PROPOFOL 100 ML IV SCH ×6 (03:15→22:33)
[2022-11-22 04:11] LABS: White Blood Cell 4.9 10^3/uL (4.4-10.8)
[2022-11-22 04:13] LABS: Hematocrit 24.1 % (41.0-53.0); Hemoglobin 7.8 g/dL (13.5-17.5); Mean Corpuscular Hemoglobin 30.4 pg (28.0-32.0); Mean Corpuscular Hgb Conc. 32.2 g/dL (32.0-36.0); Mean Corpuscular Volume 94.4 fL (80.0-100.0); Red Blood Cells 2.55 10^6/uL (4.5-5.90); Red Cell Distribution Width 13.2 % (11.8-14.3)
[2022-11-22 04:16] LABS: Basophils % (manual) 0 (0.0-2.0); Blast Cells 0; Promyelocytes % 0; Reactive Lymphocytes 0
[2022-11-22 04:44] LABS: Band Neutrophils % (manual) 5; Eosinophils % (manual) 4 (0-7); Lymphocytes % (manual) 16 (10.0-50.0); Metamyelocytes % 1; Monocytes % (manual) 11 (0-12); Myelocytes % 3
[2022-11-22 05:25] LABS: Potassium 4.6 mmol/L (3.5-5.1)
[2022-11-22 05:26] LABS: Calcium 9.1 mg/dL (8.5-10.1)
[2022-11-22 05:27] LABS: Bilirubin, Total 1.2 mg/dL (0.2-1.0); Total Protein 6.4 g/dL (6.4-8.2)
[2022-11-22] MEDS: InsuLIN REG 1unit/0.01ml Soln (100units/ml) SC SCH ×4 (05:58→23:52)
[2022-11-22] MEDS: ACCU-CHEK COMFORT CURVE STRIP VI SCH ×4 (05:58→23:52)
[2022-11-22] MEDS: MIDAZOLAM DRIP 50 mg/50mL 50 ML IV SCH ×4 (05:59→17:36)
[2022-11-22] MEDS: PHENYLEPHRINE IV 250 ML IV SCH ×2 (07:55→16:15)
[2022-11-22] MEDS: PANTOPRAZOLE 40 MG/10 ML VIAL INJ IV SCH ×2 (09:45→22:24)
[2022-11-22] MEDS: THIAMINE 100mg/ml INJ (200mg/2ml VIAL) IV SCH (09:45)
[2022-11-22] MEDS: MEROPENEM 1GM IVPB 100 ML IV SCH ×2 (09:46→22:25)
[2022-11-22 09:53] LABS: Hemoglobin 7.9 g/dL (13.5-17.5)
[2022-11-22 09:58] LABS: Hematocrit 23.8 % (41.0-53.0)
[2022-11-22] MEDS: SODIUM CHLOR 0.9% PF (SALINE LOCK) 10ML VIAL/SYR IV SCH ×2 (10:07→22:24)
[2022-11-22] MEDS: FREE WATER GT SCH ×4 (10:07→22:25)
[2022-11-22 10:40] LABS: INR 1.08 (0.9-1.15)
[2022-11-22] MEDS: NOREPINEPHRINE 8 MG/250ML KIT 250 ML IV SCH (13:15)
[2022-11-22 15:00] LABS: Hematocrit 23.4 % (41.0-53.0)
[2022-11-22] MEDS: ATRACURIUM BESYLATE 1,000 MG in D5W 5% 150 ML IV SCH (16:30)
[2022-11-22] MEDS: ACETAMINOPHEN 650 MG RECT SUPP PR PRN (17:05)
[2022-11-22] MEDS ORDERED: TPN PER PHARMACY IV NR ×5 (20:00)
[2022-11-23] VITALS (107 sets, daily range): BP systolic 91–144; BP diastolic 54–100
[2022-11-23] MEDS: PHENYLEPHRINE IV 250 ML IV SCH ×3 (00:35→17:15)
[2022-11-23] MEDS: METOCLOPRAMIDE HCL 5MG/ml INJ 2ml VIAL IV SCH ×3 (01:57→17:03)
[2022-11-23] MEDS: FREE WATER GT SCH ×6 (01:58→21:09)
[2022-11-23] MEDS: PROPOFOL 100 ML IV SCH ×7 (02:00→21:10)
[2022-11-23 04:18] LABS: Potassium 4.6 mmol/L (3.5-5.1)
[2022-11-23 04:23] LABS: Albumin 2.1 g/dL (3.4-5.0); BUN/Creatinine Ratio 39.1; Bilirubin, Total 0.9 mg/dL (0.2-1.0); Calcium 8.9 mg/dL (8.5-10.1); Magnesium 1.9 mg/dL (1.6-2.6); Phosphorus 4.7 mg/dL (2.5-4.90); Total Protein 6.6 g/dL (6.4-8.2)
[2022-11-23] MEDS: fentaNYL Drip 2500mCg/250mlNS 250 ML IV SCH ×3 (05:20→20:14)
[2022-11-23] MEDS: MIDAZOLAM DRIP 50 mg/50mL 50 ML IV SCH ×6 (05:21→20:15)
[2022-11-23] MEDS: ACCU-CHEK COMFORT CURVE STRIP VI SCH ×4 (05:35→23:36)
[2022-11-23] MEDS: InsuLIN REG 1unit/0.01ml Soln (100units/ml) SC SCH ×4 (05:35→23:36)
[2022-11-23 06:04] LABS: Basophils # (auto) 0 10 ^3/uL (0-0.2); Eosinophils # (auto) 0.2 10 ^3/uL (0-0.8); Monocytes # (auto) 0.4 10 ^3/uL (0-1.3); Neutrophils # (auto) 3.9 10 ^3/uL (1.6-8.6); Red Cell Distribution Width 12.9 % (11.8-14.3); White Blood Cell 5.5 10^3/uL (4.4-10.8)
[2022-11-23 06:07] LABS: Basophils % (auto) 0.7 % (0.0-2.0); Eosinophils % (auto) 3.7 % (0.0-7.0); Hematocrit 24.8 % (41.0-53.0); Lymphocytes % (auto) 17.8 % (10.0-50.0); Mean Corpuscular Hemoglobin 30.4 pg (28.0-32.0); Mean Corpuscular Hgb Conc. 32.2 g/dL (32.0-36.0); Mean Corpuscular Volume 94.4 fL (80.0-100.0); Monocytes % (auto) 6.9 % (0.0-12.0); Neutrophils % (auto) 70.9 % (37.0-80.0); Red Blood Cells 2.63 10^6/uL (4.5-5.90)
[2022-11-23] MEDS: PANTOPRAZOLE 40 MG/10 ML VIAL INJ IV SCH ×2 (09:25→21:08)
[2022-11-23] MEDS: THIAMINE 100mg/ml INJ (200mg/2ml VIAL) IV SCH (09:26)
[2022-11-23] MEDS: MEROPENEM 1GM IVPB 100 ML IV SCH ×2 (09:26→21:08)
[2022-11-23] MEDS: SODIUM CHLOR 0.9% PF (SALINE LOCK) 10ML VIAL/SYR IV SCH ×2 (09:28→21:09)
[2022-11-23] MEDS ORDERED: LACTULOSE 20Gm/30ML SOLN PO ONE (13:00)
[2022-11-23] MEDS: SOD CHL 0.45% 1,000 ML IV SCH (13:42)
[2022-11-23] MEDS: LACTULOSE 20Gm/30ML SOLN PO SCH ×2 (17:03→23:36)
[2022-11-23] MEDS ORDERED: MAGNESIUM SULF IV NR ×5 (20:00)
[2022-11-23] MEDS ORDERED: MULTIPLE VIT IV NR ×5 (20:00)
[2022-11-23] MEDS ORDERED: VIT K IV NR ×5 (20:00)
[2022-11-23] MEDS ORDERED: [UNRECOGNIZED DRUG - OTHER] IV NR ×5 (20:00)
[2022-11-24] VITALS (83 sets, daily range): BP systolic 109–167; BP diastolic 69–142
[2022-11-24] MEDS: PROPOFOL 100 ML IV SCH ×2 (00:40→04:26)
[2022-11-24] MEDS: METOCLOPRAMIDE HCL 5MG/ml INJ 2ml VIAL IV SCH ×2 (01:42→09:32)
[2022-11-24] MEDS: FREE WATER GT SCH ×5 (01:42→14:55)
[2022-11-24] MEDS: MIDAZOLAM DRIP 50 mg/50mL 50 ML IV SCH ×2 (01:43→04:40)
[2022-11-24] MEDS: ACETAMINOPHEN 650 MG RECT SUPP PR PRN (01:53)
[2022-11-24 03:52] LABS: Basophils % (auto) 0.9 % (0.0-2.0); Eosinophils # (auto) 0.2 10 ^3/uL (0-0.8); Hemoglobin 8.4 g/dL (13.5-17.5); Mean Corpuscular Volume 93.2 fL (80.0-100.0); Monocytes # (auto) 0.4 10 ^3/uL (0-1.3)
[2022-11-24 03:54] LABS: Basophils # (auto) 0.1 10 ^3/uL (0-0.2); Eosinophils % (auto) 2.8 % (0.0-7.0); Hematocrit 25.8 % (41.0-53.0); Lymphocytes # (auto) 0.9 10 ^3/uL (0.4-5.4); Lymphocytes % (auto) 15.7 % (10.0-50.0); Mean Corpuscular Hemoglobin 30.2 pg (28.0-32.0); Mean Corpuscular Hgb Conc. 32.4 g/dL (32.0-36.0); Monocytes % (auto) 6.4 % (0.0-12.0); Neutrophils # (auto) 4.2 10 ^3/uL (1.6-8.6); Neutrophils % (auto) 74.2 % (37.0-80.0); Nucleated Red Blood Cells % 0.1 %; Red Blood Cells 2.77 10^6/uL (4.5-5.90); Red Cell Distribution Width 12.5 % (11.8-14.3); White Blood Cell 5.6 10^3/uL (4.4-10.8)
[2022-11-24 04:12] LABS: Albumin 2.3 g/dL (3.4-5.0); Calcium 9.4 mg/dL (8.5-10.1); Potassium 4.1 mmol/L (3.5-5.1)
[2022-11-24 04:16] LABS: BUN/Creatinine Ratio 30.9; Magnesium 1.8 mg/dL (1.6-2.6)
[2022-11-24 04:18] LABS: Bilirubin, Total 0.7 mg/dL (0.2-1.0); Phosphorus 4.6 mg/dL (2.5-4.90); Total Protein 7.4 g/dL (6.4-8.2)
[2022-11-24] MEDS: fentaNYL Drip 2500mCg/250mlNS 250 ML IV SCH (04:39)
[2022-11-24] MEDS: LACTULOSE 20Gm/30ML SOLN PO SCH ×2 (05:46→11:42)
[2022-11-24] MEDS: ACCU-CHEK COMFORT CURVE STRIP VI SCH ×4 (05:46→23:42)
[2022-11-24] MEDS: InsuLIN REG 1unit/0.01ml Soln (100units/ml) SC SCH ×4 (05:47→23:43)
[2022-11-24] MEDS: SOD CHL 0.45% 1,000 ML IV SCH (06:08)
[2022-11-24] MEDS: PHENYLEPHRINE IV 250 ML IV SCH ×2 (09:28→18:15)
[2022-11-24] MEDS: PANTOPRAZOLE 40 MG/10 ML VIAL INJ IV SCH ×2 (09:32→21:47)
[2022-11-24] MEDS: THIAMINE 100mg/ml INJ (200mg/2ml VIAL) IV SCH (09:32)
[2022-11-24] MEDS: MEROPENEM 1GM IVPB 100 ML IV SCH ×2 (09:33→17:08)
[2022-11-24] MEDS: SODIUM CHLOR 0.9% PF (SALINE LOCK) 10ML VIAL/SYR IV SCH ×2 (09:33→21:47)
[2022-11-24] MEDS ORDERED: FUROSEMIDE 20 MG/2 ML VIAL ONE (12:30)
[2022-11-24] MEDS ORDERED: FUROSEMIDE 20 MG/2 ML VIAL IV ONE (12:30)
[2022-11-24] MEDS ORDERED: SOD CHL 0.45% 1,000 ML IV SCH (14:00)
[2022-11-24] MEDS ORDERED: ACETAMINOPHEN 325 MG TAB PO PRN (14:00)
[2022-11-24] MEDS ORDERED: VANCOMYCIN PER PHARMACY 0 MG IV SCH (14:00)
[2022-11-24] MEDS: VANCOMYCIN 1GM/250ML 250 ML IV SCH ×2 (14:54→21:47)
[2022-11-24] MEDS ORDERED: ACETAMINOPHEN 650 MG RECT SUPP PR PRN (16:00)
[2022-11-24] MEDS ORDERED: EPINEPHrine HCL 0.5 ML NEB NEB ONE (18:15)
[2022-11-24] MEDS ORDERED: EPINEPHrine HCL 0.5 ML NEB ONE (18:20)
[2022-11-24] MEDS ORDERED: MULTIPLE VIT IV NR ×5 (20:00)
[2022-11-24] MEDS ORDERED: MAGNESIUM SULF IV NR ×5 (20:00)
[2022-11-24] MEDS ORDERED: [UNRECOGNIZED DRUG - OTHER] IV NR ×5 (20:00)
[2022-11-24] MEDS ORDERED: VIT K IV NR ×5 (20:00)
[2022-11-24] MEDS ORDERED: IPRATROPIUM BROM 0.5 MG/2.5ML INH SOL NEB PRN (20:15)
[2022-11-24] MEDS ORDERED: ALBUTEROL SULF 2.5 MG/0.5ML(0.5%) NEB SOLN NEB PRN (20:15)
[2022-11-25] VITALS (48 sets, daily range): BP systolic 101–146; BP diastolic 64–98
[2022-11-25] MEDS: MEROPENEM 1GM IVPB 100 ML IV SCH ×3 (01:42→19:10)
[2022-11-25 04:03] LABS: Basophils # (auto) 0.1 10 ^3/uL (0-0.2); Eosinophils # (auto) 0 10 ^3/uL (0-0.8); Hemoglobin 7.8 g/dL (13.5-17.5); Lymphocytes # (auto) 0.7 10 ^3/uL (0.4-5.4); Monocytes # (auto) 0.3 10 ^3/uL (0-1.3); Red Blood Cells 2.53 10^6/uL (4.5-5.90)
[2022-11-25 04:06] LABS: Eosinophils % (auto) 0.7 % (0.0-7.0); Hematocrit 23.6 % (41.0-53.0); Lymphocytes % (auto) 11.5 % (10.0-50.0); Mean Corpuscular Hemoglobin 30.9 pg (28.0-32.0); Mean Corpuscular Hgb Conc. 33.2 g/dL (32.0-36.0); Mean Corpuscular Volume 93.1 fL (80.0-100.0); Monocytes % (auto) 4.9 % (0.0-12.0); Neutrophils # (auto) 5.2 10 ^3/uL (1.6-8.6); Neutrophils % (auto) 81.9 % (37.0-80.0); Nucleated Red Blood Cells % 0.1 %; Red Cell Distribution Width 12.2 % (11.8-14.3); White Blood Cell 6.4 10^3/uL (4.4-10.8)
[2022-11-25 04:21] LABS: Albumin 2.3 g/dL (3.4-5.0); BUN/Creatinine Ratio 34.9; Calcium 8.9 mg/dL (8.5-10.1); Magnesium 2.2 mg/dL (1.6-2.6); Potassium 3.5 mmol/L (3.5-5.1)
[2022-11-25 04:23] LABS: Total Protein 7.4 g/dL (6.4-8.2)
[2022-11-25] MEDS: VANCOMYCIN 1GM/250ML 250 ML IV SCH ×3 (06:31→21:39)
[2022-11-25] MEDS: ACCU-CHEK COMFORT CURVE STRIP VI SCH ×3 (06:31→19:04)
[2022-11-25] MEDS: InsuLIN REG 1unit/0.01ml Soln (100units/ml) SC SCH ×3 (06:32→19:03)
[2022-11-25] MEDS ORDERED: POTASSIUM CHL 20MEQ/100ML 100 ML IV ONE (09:00)
[2022-11-25] MEDS: THIAMINE 100mg/ml INJ (200mg/2ml VIAL) IV SCH (09:39)
[2022-11-25] MEDS: PANTOPRAZOLE 40 MG/10 ML VIAL INJ IV SCH ×2 (09:39→21:39)
[2022-11-25] MEDS: SODIUM CHLOR 0.9% PF (SALINE LOCK) 10ML VIAL/SYR IV SCH ×2 (09:43→21:39)
[2022-11-25] MEDS ORDERED: ERGOCALCIFEROL 50,000 UNIT(1.25MG) CAP PO SCH (17:00)
[2022-11-25] MEDS ORDERED: [UNRECOGNIZED DRUG - OTHER] IV NR ×8 (20:00)
[2022-11-25] MEDS ORDERED: FAT EMULSION IV NR ×8 (20:00)
[2022-11-25] MEDS ORDERED: POTASSIUM PHOSPHATE IV NR ×8 (20:00)
[2022-11-25] MEDS ORDERED: POTASSIUM ACETATE IV NR ×8 (20:00)
[2022-11-26] VITALS (24 sets, daily range): BP systolic 97–132; BP diastolic 55–93
[2022-11-26] MEDS: ACCU-CHEK COMFORT CURVE STRIP VI SCH ×4 (00:07→18:22)
[2022-11-26] MEDS: InsuLIN REG 1unit/0.01ml Soln (100units/ml) SC SCH ×4 (00:09→18:00)
[2022-11-26] MEDS: MEROPENEM 1GM IVPB 100 ML IV SCH ×3 (01:55→18:57)
[2022-11-26 03:56] LABS: Albumin 2.4 g/dL (3.4-5.0); Calcium 8.8 mg/dL (8.5-10.1); Magnesium 1.9 mg/dL (1.6-2.6); Potassium 3.4 mmol/L (3.5-5.1)
[2022-11-26 03:58] LABS: BUN/Creatinine Ratio 32.5
[2022-11-26 04:01] LABS: Bilirubin, Total 0.9 mg/dL (0.2-1.0); Phosphorus 2.9 mg/dL (2.5-4.90); Total Protein 7.1 g/dL (6.4-8.2)
[2022-11-26] MEDS: VANCOMYCIN 1GM/250ML 250 ML IV SCH ×3 (05:53→22:09)
[2022-11-26 07:57] LABS: Basophils # (auto) 0.1 10 ^3/uL (0-0.2); Eosinophils # (auto) 0.2 10 ^3/uL (0-0.8); Mean Corpuscular Volume 93.3 fL (80.0-100.0); Monocytes # (auto) 0.4 10 ^3/uL (0-1.3)
[2022-11-26 07:59] LABS: Basophils % (auto) 0.9 % (0.0-2.0); Eosinophils % (auto) 2.6 % (0.0-7.0); Hematocrit 23.7 % (41.0-53.0); Hemoglobin 7.7 g/dL (13.5-17.5); Lymphocytes % (auto) 13.4 % (10.0-50.0); Mean Corpuscular Hemoglobin 30.4 pg (28.0-32.0); Mean Corpuscular Hgb Conc. 32.6 g/dL (32.0-36.0); Monocytes % (auto) 5.4 % (0.0-12.0); Neutrophils # (auto) 5.5 10 ^3/uL (1.6-8.6); Neutrophils % (auto) 77.7 % (37.0-80.0); Red Blood Cells 2.54 10^6/uL (4.5-5.90); Red Cell Distribution Width 11.9 % (11.8-14.3); White Blood Cell 7.1 10^3/uL (4.4-10.8)
[2022-11-26] MEDS ORDERED: POTASSIUM CHLORIDE 20 MEQ, LIDOCAINE 1% (LOCAL ANESTH.) 2 ML in SODIUM CHL 0.9% 100 ML IV ONE (09:00)
[2022-11-26] MEDS: SODIUM CHLOR 0.9% PF (SALINE LOCK) 10ML VIAL/SYR IV SCH ×2 (10:00→22:10)
[2022-11-26] MEDS: THIAMINE 100mg/ml INJ (200mg/2ml VIAL) IV SCH (10:20)
[2022-11-26] MEDS: PANTOPRAZOLE 40 MG/10 ML VIAL INJ IV SCH ×2 (10:21→22:09)
[2022-11-26 12:51] LABS: Folate (Folic Acid) 9.52 ng/mL (5.38-24)
[2022-11-26 18:28] LABS: % Iron Saturation 26.4 % (20-55)
[2022-11-26] MEDS ORDERED: TPN PER PHARMACY IV NR ×8 (20:00)
[2022-11-27] MEDS: ACCU-CHEK COMFORT CURVE STRIP VI SCH ×3 (00:46→12:25)
[2022-11-27] MEDS: MEROPENEM 1GM IVPB 100 ML IV SCH ×2 (03:05→09:41)
[2022-11-27 05:00] VITALS: BP 126/81
[2022-11-27 05:38] LABS: Potassium 3.5 mmol/L (3.5-5.1)
[2022-11-27 05:42] LABS: Albumin 2.5 g/dL (3.4-5.0); BUN/Creatinine Ratio 29.9; Calcium 8.3 mg/dL (8.5-10.1); Magnesium 1.8 mg/dL (1.6-2.6)
[2022-11-27 05:44] LABS: Bilirubin, Total 0.7 mg/dL (0.2-1.0); Phosphorus 3.3 mg/dL (2.5-4.90); Total Protein 6.7 g/dL (6.4-8.2)
[2022-11-27] MEDS: InsuLIN REG 1unit/0.01ml Soln (100units/ml) SC SCH ×3 (06:00→12:00)
[2022-11-27] MEDS: VANCOMYCIN 1GM/250ML 250 ML IV SCH ×3 (06:42→22:13)
[2022-11-27] MEDS ORDERED: POTASSIUM CHL 20 Meq TABLET PO ONE (08:00)
[2022-11-27 09:00] VITALS: BP 106/62
[2022-11-27] MEDS: THIAMINE 100mg/ml INJ (200mg/2ml VIAL) IV SCH (09:40)
[2022-11-27] MEDS: PANTOPRAZOLE 40 MG/10 ML VIAL INJ IV SCH ×2 (09:41→22:20)
[2022-11-27] MEDS: SODIUM CHLOR 0.9% PF (SALINE LOCK) 10ML VIAL/SYR IV SCH ×2 (09:41→22:20)
[2022-11-27] MEDS: MAGNESIUM OXIDE 400 MG TAB PO SCH ×2 (09:42→22:20)
[2022-11-27 13:00] VITALS: BP 136/70
[2022-11-27 17:00] VITALS: BP 108/76
[2022-11-27 22:00] VITALS: BP 124/85
[2022-11-28] MEDS: MEROPENEM 1GM IVPB 100 ML IV SCH ×3 (02:00→17:25)
[2022-11-28 05:00] VITALS: BP 121/78
[2022-11-28] MEDS: VANCOMYCIN 1GM/250ML 250 ML IV SCH ×3 (05:36→16:16)
[2022-11-28 06:23] LABS: Basophils # (auto) 0 10 ^3/uL (0-0.2); Basophils % (auto) 0.7 % (0.0-2.0); Eosinophils # (auto) 0.2 10 ^3/uL (0-0.8); Eosinophils % (auto) 2.6 % (0.0-7.0); Hematocrit 23.5 % (41.0-53.0); Hemoglobin 8.2 g/dL (13.5-17.5); Lymphocytes # (auto) 1.3 10 ^3/uL (0.4-5.4); Lymphocytes % (auto) 20.3 % (10.0-50.0); Mean Corpuscular Hemoglobin 31.4 pg (28.0-32.0); Mean Corpuscular Volume 89.8 fL (80.0-100.0); Monocytes # (auto) 0.6 10 ^3/uL (0-1.3); Monocytes % (auto) 8.9 % (0.0-12.0); Neutrophils # (auto) 4.4 10 ^3/uL (1.6-8.6); Neutrophils % (auto) 67.5 % (37.0-80.0); Nucleated Red Blood Cells % 0.1 %; Red Blood Cells 2.61 10^6/uL (4.5-5.90); Red Cell Distribution Width 12.1 % (11.8-14.3); White Blood Cell 6.5 10^3/uL (4.4-10.8)
[2022-11-28 06:30] LABS: Albumin 2.9 g/dL (3.4-5.0)
[2022-11-28 06:35] LABS: BUN/Creatinine Ratio 26.7; Bilirubin, Total 0.9 mg/dL (0.2-1.0); Calcium 8.5 mg/dL (8.5-10.1); Total Protein 6.8 g/dL (6.4-8.2)
[2022-11-28 08:00] VITALS: BP 106/58
[2022-11-28] MEDS: THIAMINE 100mg/ml INJ (200mg/2ml VIAL) IV SCH (09:39)
[2022-11-28] MEDS: SODIUM CHLOR 0.9% PF (SALINE LOCK) 10ML VIAL/SYR IV SCH ×2 (09:39→22:00)
[2022-11-28] MEDS: MAGNESIUM OXIDE 400 MG TAB PO SCH ×2 (09:39→22:00)
[2022-11-28] MEDS: PANTOPRAZOLE 40 MG/10 ML VIAL INJ IV SCH ×2 (09:39→22:00)
[2022-11-28 12:00] VITALS: BP 113/81
[2022-11-28 16:00] VITALS: BP 109/78
[2022-11-28 22:00] VITALS: BP 111/72
[2022-11-29] MEDS: MEROPENEM 1GM IVPB 100 ML IV SCH ×3 (01:44→17:20)
[2022-11-29] MEDS: VANCOMYCIN 1GM/250ML 250 ML IV SCH ×3 (04:35→23:40)
[2022-11-29 05:00] VITALS: BP 118/72
[2022-11-29 05:07] LABS: Basophils # (auto) 0.1 10 ^3/uL (0-0.2); Basophils % (auto) 1.2 % (0.0-2.0); Eosinophils # (auto) 0.2 10 ^3/uL (0-0.8); Eosinophils % (auto) 3.5 % (0.0-7.0); Hematocrit 25.7 % (41.0-53.0); Hemoglobin 8.9 g/dL (13.5-17.5); Lymphocytes # (auto) 1.2 10 ^3/uL (0.4-5.4); Lymphocytes % (auto) 20.6 % (10.0-50.0); Mean Corpuscular Hemoglobin 30.7 pg (28.0-32.0); Mean Corpuscular Hgb Conc. 34.4 g/dL (32.0-36.0); Mean Corpuscular Volume 89.2 fL (80.0-100.0); Monocytes # (auto) 0.6 10 ^3/uL (0-1.3); Monocytes % (auto) 10.3 % (0.0-12.0); Neutrophils # (auto) 3.7 10 ^3/uL (1.6-8.6); Neutrophils % (auto) 64.4 % (37.0-80.0); Nucleated Red Blood Cells % 0.1 %; Red Blood Cells 2.88 10^6/uL (4.5-5.90); Red Cell Distribution Width 12.2 % (11.8-14.3); White Blood Cell 5.8 10^3/uL (4.4-10.8)
[2022-11-29 05:26] LABS: Potassium 3.9 mmol/L (3.5-5.1)
[2022-11-29 05:28] LABS: BUN/Creatinine Ratio 19.3
[2022-11-29 09:00] VITALS: BP 110/74
[2022-11-29] MEDS: THIAMINE 100mg/ml INJ (200mg/2ml VIAL) IV SCH (09:32)
[2022-11-29] MEDS: PANTOPRAZOLE 40 MG/10 ML VIAL INJ IV SCH ×2 (09:32→21:20)
[2022-11-29] MEDS: SODIUM CHLOR 0.9% PF (SALINE LOCK) 10ML VIAL/SYR IV SCH ×2 (09:33→21:22)
[2022-11-29] MEDS: MAGNESIUM OXIDE 400 MG TAB PO SCH ×2 (09:33→21:22)
[2022-11-29 13:19] VITALS: BP_SYST 112; BP_SYST 93; BP_DIAS 59; BP_DIAS 75
[2022-11-29 16:48] VITALS: BP 106/74
[2022-11-29 22:00] VITALS: BP 97/53
[2022-11-30] MEDS ORDERED: VANCOMYCIN 1GM/250ML 250 ML IV SCH (01:00)
[2022-11-30] MEDS: MEROPENEM 1GM IVPB 100 ML IV SCH ×2 (01:59→11:30)
[2022-11-30 05:00] VITALS: BP 95/56
[2022-11-30 05:58] LABS: BUN/Creatinine Ratio 19.5; Calcium 8.7 mg/dL (8.5-10.1); Potassium 3.9 mmol/L (3.5-5.1)
[2022-11-30 08:30] VITALS: BP 106/64
[2022-11-30] MEDS: PANTOPRAZOLE 40 MG/10 ML VIAL INJ IV SCH (09:47)
[2022-11-30] MEDS: THIAMINE 100mg/ml INJ (200mg/2ml VIAL) IV SCH (09:47)
[2022-11-30] MEDS: SODIUM CHLOR 0.9% PF (SALINE LOCK) 10ML VIAL/SYR IV SCH (09:49)
[2022-11-30] MEDS: MAGNESIUM OXIDE 400 MG TAB PO SCH (09:49)
[2022-11-30] MEDS ORDERED: ERGO1CAP23 PO (11:30)
[2022-11-30] MEDS ORDERED: FAMO20TA10 PO (11:30)
[2022-11-30 12:30] VITALS: BP 113/74
== END 2022-11-30 16:20 | disposition home or self-care (01) | DRG 720 ==
LOC: ER 10:23 → OVERFLOW 15:34 → WEST WING 21:19 → OVERFLOW 21:33 → ICU WEST 11-11 04:29 → TELE-CENTR 11-26 11:13
PROVIDERS: ADMIT Registered Nurse; ATTEND Internal Medicine
PROC: 02H633Z Insertion of Infusion Device into Right Atrium, Percutaneous Approach (ICD-10-PCS; principal; 2022-11-11)
PROC: B548ZZA Ultrasonography of Superior Vena Cava, Guidance (ICD-10-PCS; 2022-11-11)
PROC: 5A1955Z Respiratory Ventilation, Greater than 96 Consecutive Hours (ICD-10-PCS; 2022-11-11)
PROC: 0BH17EZ Insertion of Endotracheal Airway into Trachea, Via Natural or Artificial Opening (ICD-10-PCS; 2022-11-11)
PROC: 5A1D70Z Performance of Urinary Filtration, Intermittent, Less than 6 Hours Per Day (ICD-10-PCS; 2022-11-12)
PROC: 05HM33Z Insertion of Infusion Device into Right Internal Jugular Vein, Percutaneous Approach (ICD-10-PCS; 2022-11-12)
PROC: B543ZZA Ultrasonography of Right Jugular Veins, Guidance (ICD-10-PCS; 2022-11-12)
PROC: 5A1D70Z Performance of Urinary Filtration, Intermittent, Less than 6 Hours Per Day (ICD-10-PCS; 2022-11-15)
PROC: 5A1935Z Respiratory Ventilation, Less than 24 Consecutive Hours (ICD-10-PCS; 2022-11-25)
PROC: 5A1935Z Respiratory Ventilation, Less than 24 Consecutive Hours (ICD-10-PCS; 2022-11-26)
DX: A41.9 Sepsis, unspecified organism (principal); N17.0 Acute kidney failure with tubular necrosis; J96.00 Acute respiratory failure, unspecified whether with hypoxia or hypercapnia; Z20.822 Contact with and (suspected) exposure to COVID-19; K85.20 Alcohol induced acute pancreatitis without necrosis or infection; M79.A3 Nontraumatic compartment syndrome of abdomen; E83.51 Hypocalcemia; I21.A1 Myocardial infarction type 2; E88.09 Other disorders of plasma-protein metabolism, not elsewhere classified; K85.90 Acute pancreatitis without necrosis or infection, unspecified; K35.80 Unspecified acute appendicitis; E66.9 Obesity, unspecified; E78.5 Hyperlipidemia, unspecified; F10.10 Alcohol abuse, uncomplicated; R73.03 Prediabetes; E87.5 Hyperkalemia; F14.10 Cocaine abuse, uncomplicated; F15.10 Other stimulant abuse, uncomplicated; K42.9 Umbilical hernia without obstruction or gangrene; E87.70 Fluid overload, unspecified; I11.9 Hypertensive heart disease without heart failure; Z99.2 Dependence on renal dialysis; Z68.29 Body mass index [BMI] 29.0-29.9, adult
CPT/HCPCS: 36415; 36569; 36600; 71045; 71250; 74018; 74176; 76705; 76775; 80048; 80053; 80061; 80202; 80307; 80320; 81001; 82140; 82150; 82247; 82248; 82270; 82306; 82550; 82570; 82607; 82746; 82805; 82962; 82977; 83036; 83540; 83550; 83605; 83615; 83690; 83735; 83880; 83970; 84100; 84132; 84156; 84300; 84443; 84478; 84484; 85007; 85014; 85018; 85025; 85027; 85045; 85610; 85730; 86803; 86850; 86900; 86901; 87040; 87070; 87081; 87205; 87340; 87426; 87804; 90935; 93005; 93306; 94003; 94640; 96365; 96368; 96372; 96375; 97110; 97116; 97163; 97530; C9113; G0378; J0696; J1642; J1815; J2001; J2185; J2250; J2405; J2704; J3480; J3490; J7060; J7131; P9047; Q9956